=== PATIENT | female | born 1960 | race Caucasian/White ===

== ENCOUNTER 2017-12-25 19:52 | Emergency (ER) | payer MEDICARE, SELFPAY ==
[2017-12-25 20:09] VITALS: BP 134/102; PULSE 54; RESP 15; TEMP 36.7; O2SAT 99
--- NOTE | 2017-12-25 20:10 | ED.FEMALEGU ---
HPI - Female Genitourinary <Rosy Worrell PA-C - Last Filed: 12/25/17 22:02> General Chief complaint: Urogenital-Female Stated complaint: THINKS UTI Time Seen by Provider: 12/25/17 20:03 Source: patient and family Mode of arrival: ambulatory Limitations: other (Dementia) History of Present Illness HPI Narrative: This 57-year-old female is brought in by family due to concern for UTI. Family noticed some dark or slightly orange discoloration in her urine on Thursday, and she started taking azo. Yesterday, she began to complain of burning with urination. Patient states that it is very painful to urinate, and she has been trying not to go despite feeling the urge. Due to that, she has not had any urinary frequency. She denies any vomiting. She has not had fever. She denies any flank or abdominal pain. Family notes that for about 5 days she has been more anxious and more combative at times. This was following a medication mixup where she was off of her Keppra for a couple of days and given father's potassium instead by mistake. She had 2 seizures. She Has been back on her Keppra for the last 5 days now. Family states that she has not been sleeping well. Her mother via phone reports that she has been eating and drinking today, last ate around 4:00 a.m. but did not have dinner, perhaps a little bit less fluids than usual though she has drank a bottle of water while EN route here. Patient has early-onset dementia and family supplements history Related Data Previous Rx's Medication Instructions Recorded nitrofurantoin monohyd/m-cryst 100 mg PO BID #8 cap 12/25/17 [Macrobid] Allergies Allergy/AdvReac Type Severity Reaction Status Date / Time No Known Drug Allergies Allergy Verified 12/25/17 20:09 Review of Systems <Rosy Worrell PA-C - Last Filed: 12/25/17 22:02> Review of Systems All systems reviewed & are unremarkable except as noted in HPI and below PFSH <Rosy Worrell PA-C - Last Filed: 12/25/17 22:02> Comment: No tobacco, ETOH or street drug use Exam <Rosy Worrell PA-C - Last Filed: 12/25/17 22:02> Narrative Exam Narrative: GENERAL APPEARANCE: Patient sitting comfortably, in no distress. LUNGS: Clear to auscultation bilaterally. HEART: Rate and rhythm regular without murmur, normal S1 and S2, no S3 or S4. ABDOMEN: Soft, NT, ND, +BS x 4 quadrants, no CVAT. Initial Vital Signs Initial Vital Signs: Vital Signs Temperature 98.1 F 12/25/17 20:09 Pulse Rate 54 L 12/25/17 20:09 Respiratory Rate 15 12/25/17 20:09 Blood Pressure 134/102 H 12/25/17 20:09 Pulse Oximetry 99 12/25/17 20:09 <Lynda Cross DO - Last Filed: 12/26/17 03:31> Initial Vital Signs Initial Vital Signs: Vital Signs Temperature 98.1 F 12/25/17 20:09 Pulse Rate 54 L 12/25/17 20:09 Respiratory Rate 15 12/25/17 20:09 Blood Pressure 134/102 H 12/25/17 20:09 Pulse Oximetry 99 12/25/17 20:09 Course <Rosy Worrell PA-C - Last Filed: 12/25/17 22:02> Orders Ordered: ED Orders 12/25/17 20:05 Urine Culture Stat Urine Microscopic Stat Discontinued Medications Nitrofurantoin Macrocrystals (Macrobid 100mg Prepack) 1 bottle MISC SEEINSTR ONE Stop: 12/25/17 21:10 Last Admin: 12/25/17 21:15 Dose: 1 bottle Vital Signs - 8 hr 12/25/17 20:09 Temperature 98.1 F Pulse Rate 54 L Respiratory Rate 15 Blood Pressure 134/102 H Pulse Oximetry 99 <Lynda Cross DO - Last Filed: 12/26/17 03:31> Orders Ordered: ED Orders 12/25/17 20:05 Urine Culture Stat Urine Microscopic Stat Discontinued Medications Nitrofurantoin Macrocrystals (Macrobid 100mg Prepack) 1 bottle MISC SEEINSTR ONE Stop: 12/25/17 21:10 Last Admin: 12/25/17 21:15 Dose: 1 bottle Vital Signs - 8 hr 12/25/17 20:09 Temperature 98.1 F Pulse Rate 54 L Respiratory Rate 15 Blood Pressure 134/102 H Pulse Oximetry 99 MDM - Female Genitourinary <Rosy Worrell PA-C - Last Filed: 12/25/17 22:02> Lab Data Attestation: I reviewed the patient's lab results. Lab Results 12/25/17 Range/Units 20:05 Urine Color Cancelled Urine Appearance Cancelled Urine pH Cancelled Ur Specific [place] Cancelled Urine Protein Cancelled Urine Glucose (UA) Cancelled Urine Ketones Cancelled Urine Occult Blood Cancelled Urine Nitrate Cancelled Urine Bilirubin Cancelled Urine Urobilinogen Cancelled Ur Leukocyte Esterase Cancelled Urine RBC 1-5/hpf (0-5/HPF) Urine WBC 5-10/hpf H (0-5/HPF) Ur Squamous Epith Cells 1-5 /hpf Urine Bacteria Few (2-10) H (None) Ur Culture Indicated? Specimen cultured Micro UA Comment Not Reportable <Lynda Cross DO - Last Filed: 12/26/17 03:31> Lab Data Lab Results 12/25/17 Range/Units 20:05 Urine Color Cancelled Urine Appearance Cancelled Urine pH Cancelled Ur Specific [place] Cancelled Urine Protein Cancelled Urine Glucose (UA) Cancelled Urine Ketones Cancelled Urine Occult Blood Cancelled Urine Nitrate Cancelled Urine Bilirubin Cancelled Urine Urobilinogen Cancelled Ur Leukocyte Esterase Cancelled Urine RBC 1-5/hpf (0-5/HPF) Urine WBC 5-10/hpf H (0-5/HPF) Ur Squamous Epith Cells 1-5 /hpf Urine Bacteria Few (2-10) H (None) Ur Culture Indicated? Specimen cultured Micro UA Comment Not Reportable Discharge Plan Departure Patient Disposition: Home Clinical Impression: UTI (urinary tract infection), Insomnia Discharge Date/Time: 12/25/17 21:52 Interventions: ED Discharge Assessment Last Done: 12/25/17 21:50 Instructions: DI for Urinary Tract Infection (UTI), DI for Insomnia Activity Restrictions/Additional Instructions: Please take your 1st dose of antibiotic tonight and the 2nd dose in the morning. I have sent in a prescription for you to your pharmacy so you can pick it up and continue it twice daily. You can increase your Azo to 2 tabs (200mg) every 8 hr to help with urinary pain for the next couple of days while we get the antibiotic started. You should return as we talked about if you have any acutely worsening symptoms or new symptoms such as vomiting or fever. Please follow-up with your PCP early next week to make sure that you are improving as expected. You should also follow up on your insomnia and anxiety in case this is not improving as the infection gets better. Since the [id number] medication you tried with Benadryl in it did not help you sleep all night, it is okay to try [id number] Doxylamine (same as Unisom), 1 tablet at bedtime, which may be helpful. You can take this as needed. If your insomnia and anxiety persist your PCP may want to help with some other treatments Prescriptions: New nitrofurantoin monohyd/m-cryst [Macrobid] 100 mg capsule 100 mg PO BID Qty: 8 RF: 0 Referrals: Evan Arthur MD [Non-Staff] - <Lynda Cross DO - Last Filed: 12/26/17 03:31> Cosign ED Attending Cosignature Attestation: I was immediately available in the department for consultation. This documentation has been reviewed and I agree with assessment and plan. Supervised by Lynda Cross DO
[2017-12-25 21:02] LABS: Bacteria Urine Few (2-10); Culture Indicated Urine Specimen Cultured; RBC Urine 1-5/HPF (0-5/HPF); Squamous Epithelial Cell Urine 1-5 /HPF; WBC Urine 5-10/HPF (0-5/HPF)
[2017-12-25] MEDS: NITROFURANTOIN 100MG PREPACK 1 BOTTLE MISC (21:15)
== END 2017-12-25 21:52 | disposition home or self-care (01) ==
PROVIDERS: Emergency Provider Internal Medicine
DX: N39.0 Urinary tract infection, site not specified (principal); G47.00 Insomnia, unspecified
CPT/HCPCS: 81015; 87086; 99282; 99283